=== PATIENT | female | born 1965 | race Caucasian/White ===

== ENCOUNTER 2016-11-22 07:01 | Day surgery (SDC) | payer MEDICAID ==
[2016-11-18 11:28] LABS: BASOPHIL % 0.9 % (0-2); PLATELET COUNT 316 x10^3mcL (130-400)
[2016-11-18 11:33] LABS: RED CELL DISTRIBUTION WIDTH 15.6 % (11.5-14.5)
[2016-11-18 11:54] LABS: ALBUMIN 3.5 g/dL (3.4-5.0); ALKALINE PHOSPHATASE 75 U/L (46-116); ALT/SGPT 21 U/L (14-59); AST/SGOT 17 U/L (15-37); BILIRUBIN TOTAL 0.3 mg/dL (0.20-1.00); CALCIUM 8.7 mg/dL (8.5-10.1); CARBON DIOXIDE 29.4 mmol/L (21-32); CHLORIDE SERUM 106 mmol/L (98-107); CREATININE SERUM 0.7 mg/dL (0.6-1.0); GFR1 > 60 mL/min; GLUCOSE SERUM 89 mg/dL (74-106); POTASSIUM SERUM 3.8 mmol/L (3.5-5.1); SODIUM SERUM 142 mmol/L (136-145); TOTAL PROTEIN, SERUM 7.3 g/dL (6.4-8.2)
[~2016-11-22] VITALS: Ht 157.5 cm; Wt 63.5 kg
[2016-11-22 07:38] VITALS: BP 122/79
[2016-11-22 18:22] VITALS: BP 115/69
== END 2016-11-22 18:20 | disposition home or self-care (01) ==
LOC: DS 07:01 → OR 13:00 → DS 13:00
PROVIDERS: Surgery
PROC: 07B60ZZ Excision of Left Axillary Lymphatic, Open Approach (ICD-10-PCS; 2016-11-22)
PROC: 0HBU0ZZ Excision of Left Breast, Open Approach (ICD-10-PCS; principal; 2016-11-22 13:00)
DX: C50.412 Malignant neoplasm of upper-outer quadrant of left female breast (principal); Z17.0 Estrogen receptor positive status [ER+]; Z68.27 Body mass index [BMI] 27.0-27.9, adult
CPT/HCPCS: 88344; 88361; J0690; J1170; J2001; J2175; J2250; J2405; J3010; J3490; Q9968

== ENCOUNTER 2019-04-18 07:28 | Inpatient (IN) | payer MEDICAID ==
[2019-04-15 12:01] LABS: BASOPHIL % 0.6 % (0-2); PLATELET COUNT 292 x10^3mcL (130-400); RED CELL DISTRIBUTION WIDTH 13.2 % (11.5-14.5)
[2019-04-15 12:22] LABS: CALCIUM 8.5 mg/dL (8.5-10.1); CARBON DIOXIDE 31.3 mmol/L (21-32); CHLORIDE SERUM 106 mmol/L (98-107); CREATININE SERUM 0.7 mg/dL (0.6-1.0); GFR1 > 60 mL/min; GLUCOSE SERUM 103 mg/dL (74-106); POTASSIUM SERUM 4.1 mmol/L (3.5-5.1); SODIUM SERUM 141 mmol/L (136-145)
[2019-04-15 12:26] LABS: ALKALINE PHOSPHATASE 71 U/L (46-116); ALT/SGPT 30 U/L (14-59); AST/SGOT 19 U/L (15-37); BILIRUBIN TOTAL 0.3 mg/dL (0.20-1.00); TOTAL PROTEIN, SERUM 6.5 g/dL (6.4-8.2)
[2019-04-15 12:27] LABS: ALBUMIN 2.9 g/dL (3.4-5.0)
[~2019-04-18] VITALS: Ht 157.5 cm; Wt 60.8 kg
[2019-04-18 07:37] VITALS: BP 106/64
[2019-04-18 09:13] VITALS: BP 106/64
--- NOTE | 2019-04-18 15:27 | NUR ---
RECIEVED BY BED FROM RECOVERY ROOM. PATIENT IS IN A DEEP SLEEP AND HAD RECIEVED DEMEROL PRIOR TO RETURN TO THE FLOOR. SEVERAL FAMILY MEMBERS AT BEDSIDE AND WERE ANSWERING QUESTIONS TO THE RN MINA FOR ADMISSION NOTED THE HARSHA AND BINDER IN PLACE AND THE FOUR TUCKER DRAINS. TWO TO EACH BREAST. PATIETN IS POST OPERATIVE BILTERAL MASECTOMY AND WITH AXILLARY INCISION WELL. THE PATEITN AHS SUTURES AND REJI ARE VISABLE. PATIENT HAS DIMINISHED BREATH SOUND AND PATEINT HAS BEEN PLACED ON 02 AT 2 LITERS VIA NASAL CANNULA. PATIENT HISTORY OF BREAST CANCER AND TWO BIOPSIED SITES ARE SENT TO PATHOLOGY INDICATED. PATIENT HAS HISTORY OF FIBROIDS, ANEMIA. HER H AND H TODAY IS AT 15/34, AND THE PATIENT HAD BEEN TYPED AND SCREENED FOR BLOOD. SHE HAS ONE GRAM OF ANCEF IN THE OPERATIVING ROOM AND HAS THE MRSA SWAB DONE IN OUTPATIENT AND CONSENTS AND CHECKLIST WERE COMPLETED PRIOR TO THE SURGERY. PATIENT HAS A LYMPHOSCINTIGRAM PER THE CONSENT. WILL START IV FLUIDS AND MONITOR FOR PAIN. VITALS ARE STABLE AND BP AT 120/60 AND TEMPERATURE IS NORMAL. SHE IS BREATHING SHALLOW AT 10 RESPIRATIONS PER THE RECOVERY NURSE SO 02 WAS APPLIED. OUTPUT IN OR WAS OVER 400 EBL AND THE TUCKER HAD NOT BEEN DRAINED SO FAR. TH EOUTPUT IS SEROUS SANGUINOUS AND SHE HAS ALL TUCKER PATIENT AND UNENCOMBERED FOR PROPER DRAINAGE.
--- NOTE | 2019-04-18 17:07 | NUR ---
PATIENT PERIODICALLY WAKES AND COMPLAINS OF PAIN BUT QUICKLY FALL BACK TO SLEEP. PATIET WAS GIVEN DILAUDID EARLIER AND SEEMS TO BE EFFECTIVE. PATIENT OFFER WATER AND WILL HAVE A DINNER TRAY TONIGHT. FAMILY AT BEDSIDE AND ATTENTIVE WITH CARE.
--- NOTE | 2019-04-18 17:53 | NUR ---
PATIENT FELL ASLEEP FOR NOW AND WILL EMPTY THE TUCKER'S INDICATED. PATIENT HAS SEROUS SANGUINOUS OUTPUT. DREESING REMAINS INTACT AND DRY. NO URINATION YET NOTED POST OPERATIVE.
--- NOTE | 2019-04-18 18:48 | NUR ---
PATIENT REQUESTED PAIN MEDICATION AND THEN WANTS TO URINATE AND OFFERED BEDPAN OR OOB TO THE [facility]. SHE OPTED FOR THE BEDPAN. SHE THEN IDNICATED HER STOMACH HURTS AND OFFERED ZOFRAN FOR HER ACIDY STOMACH. WILL MONITOR FOR EFFECTIVENESS.
--- NOTE | 2019-04-18 19:20 | NUR ---
REPORT RECEIVED FROM DAY SHIFT RN. PATIENT WAS SEEN RESTING COMFORTABLY IN BED WITH AT BEDSIDE. NO DISTRESS NOTED. BREATHING EVEN AND UNLABORED ON ROOM AIR. NO SOB NOTED. DENIES CHEST PAIN/PRESSURE. C/O 7/10 TOLERABLE PAIN AT SURGICAL SITE. PAIN MEDS GIVEN EARLIER BY DAY SHIFT RN. IV TO THE LH, 20G, PATENT AND INTACT. NO REDNESS OR SWELLING NOTED. INFUSING WELL. DRESSINGS TO RIGHT AXILLARY AND CHEST, CDI. ABD BINDER IN PLACE. 4 TUCKER DRAINS NOTED (2 BILATERALLY) W. MINIMAL SEROSANGUINEOUS OUTPUT NOTED. DENIES N/V. COMFORT AND SAFETY MEASURES IN PLACE. CALL LIGHT IS WITHIN REACH. BED IS LOCKED AND IN THE LOWEST POSITION. SIDE RAILS UP X2. CALL LIGHT IS WITHIN REACH. WILL CONTINUE TO MONITOR.
[2019-04-18 22:11] VITALS: BP 103/60
[2019-04-18 22:35] VITALS: BP 90/51
--- NOTE | 2019-04-18 22:55 | NUR ---
PATIENT VOIDED IN BED PAIN X1. URINE IS CLEAR LIGHT GREEN COLOR. PATIENT DENIES ANY MEDS THAT WOULD MAKE URINE GREEN. PATIENT STATES SHE ONLY TAKES OMEGA 3 AND ALOE VERA. WILL CONTINUE TO MONITOR.
[2019-04-18 23:09] VITALS: BP 99/54
--- NOTE | 2019-04-18 23:25 | NUR ---
VOIDED ON BED MACIAS. URINE IS STILL CLEAR LIGHT GREEN. PATIENT DENIES DSYURIA
--- NOTE | 2019-04-18 23:25 | NUR ---
VOIDED ON BED MACIAS. URINE IS STILL CLEAR LIGHT GREEN. PATIENT DENIES DSYURIA. WILL NOTIFY DR CHAMBERS.
--- NOTE | 2019-04-18 23:29 | NUR ---
READ OPERATIVE REPORT. METHYLENE BLUE WAS INJECTED INTO PATIENT CAUSING URINE TO BE GREEN.
--- NOTE | 2019-04-19 01:46 | NUR ---
JP ERICKSON ASSISTED PATIENT ONTO BED MACIAS. PATIENT ALSO C/O 9/10 SURGICAL PAIN. DESCRIBED PAIN THROBBING. PATIENT IS REQUESTING PRN NORCO. ADMINSITERED PRN NORCO PRESCRIBED. MED EDUCATION GIVEN. NO DISTRESS NOTED. ASSISTED PATIENT OFF BED MACIAS. URINE IS LESS GREEN. BREATHING EVEN AND UNLABORED ON ROOM AIR. IVF INFUSING WELL. ASSISTED PATIENT W/ REPOSITIONING FOR COMFORT. SAFETY MEASURES IN PLACE. CALL LIGHT IS WITHIN REACH. WILL CONTINUE TO MONITOR.
--- NOTE | 2019-04-19 05:34 | NUR ---
[facility] REPORTED LOW BP 85/47 (59). WILL CALL DR NOVA.
--- NOTE | 2019-04-19 06:03 | NUR ---
RESTED IN LONG INTERVALS THROUGHOUT THE NIGHT. NO ACUTE CHANGES NOTED. BREATHING EVEN AND UNLABORED ON ROOM AIR. NO SOB NOTED. NO DISTRESS NOTED. IVF INFUSING WELL TO LH. PATENT AND INTACT. NO REDNESS OR SWELLING NOTED. C/O PAIN X1. MEDICATED W/ PRN NORCO W/ GOOD RELIEF. DENIES CHEST PAIN/PRESSURE. CHEST DRESSING IN PLACE W/ ABD BINDER. 4 TUCKER DRAINS: RT#1: 10ML OF SEROSANGUINEOUS OUTPUT, RT#2: 20ML OF BLOODY OUTPUT, LT#1: 20ML OF BLOODY OUTPUT, AND LT#2 10ML OF BLOODY OUTPUT. TOTAL 60ML OUT FROM TUKCER DRAIN. VOIDED X5. PASSING GAS. NO BM. LOW BP. AWAITING CALL BACK FROM DR NOVA. PATIENT WANTS TO AMBULATE. EDUCATED PATIENT ON FALL RISK SINCE BP IS LOW. VERBALIZED UNDERSTANDING. ALL NEEDS AND CONCERNS ADDRESSED. SAFETY MEASURES IN PLACE. CALL LIGHT IS WITHIN REACH. WILL ENDORSE CARE TO ONCOMING RN.
[2019-04-19 06:07] VITALS: BP 85/47
[2019-04-19 06:32] LABS: BASOPHIL % 0.2 % (0-2); PLATELET COUNT 240 x10^3mcL (130-400); RED CELL DISTRIBUTION WIDTH 13.7 % (11.5-14.5)
[2019-04-19 06:33] VITALS: BP 85/49
--- NOTE | 2019-04-19 06:33 | NUR ---
REASSESSED BP. STILL LOW. BP 85/49 (58), HR 76. STILL AWAITING CALL BACK FROM DR NOVA. PATIENT SHOWS NO S/S OF DISTRESS. LAYING IN BED. AT BEDSIDE. SAFETY MEASURES IN PLACE. CALL LIGHT IS WITHIN REACH. WILL CONTINUE TO MONITOR AND ENDORSE CARE TO DAY SHIFT RN.
--- NOTE | 2019-04-19 06:48 | NUR ---
PAGED DR NOVA AGAIN FOR LOW BP. AWAITING CALL BACK.
--- NOTE | 2019-04-19 06:52 | NUR ---
DR NOVA CALLED BACK. NEW ORDERS FOR 500ML NS BOLUS AND TO CONSULT DR JONES VIA TRBO. WILL INPUT AND CARRY OUT ORDERS.
--- NOTE | 2019-04-19 07:10 | NUR ---
DR NOVA CALLED BACK ON UPDATE W/ THE PATIENT. DR NOVA IS AWARE BOLUS IS STILL INFUSING, TUCKER DRAIN OUT, AND PATIENT'S STATUS THROUGHOUT THE NIGHT. AWARE OF AM H/H LABS. NO NEW ORDERS AT THIS TIME. WILL ENDORSE CARE TO DAY SHIFT RN.
[2019-04-19 07:30] VITALS: BP 114/80
--- NOTE | 2019-04-19 07:30 | NUR ---
RECEIVED PT FROM COTTON TIER RN. A/OX4. MED SURG. DENIES CHEST PAIN/PRESSURE. RESPIRATIONS EQUAL AND UNLABORED ON RA. DENIES SOB. ABDOMINAL PAD TO UPPER CHEST. DRESSING CDI. NOTED TUCKER DRAINAGE X4 WITH SANGINEOUS DRAINAGE TO ALL 4 DRAINS. PT PASSING GAS, PT DENIES ANY BM AT THIS TIME. PT DENIES ANY ABDOMINAL PAIN. BOLUS COMPLETE TO LH. NO REDNESS OR SWELLING NOTED. BLOOD PRESSURE RECHECKED IN RIGHT LEG WAS 114/80. PT C/O PAIN TO OPERATIVE SITE 810 PRESSURE. WILL MEDICATE PER EMAR. DENIES ANY N/V. AT BEDSIDE. WILL CONTINUE TO MONITOR. CALL LIGHT IN REACH. BED IN LOWEST POSITION.
[2019-04-19 08:34] VITALS: BP 114/50
--- NOTE | 2019-04-19 09:22 | NUR ---
PT SITTING UP IN BED. NO ACUTE RESP DISTRESS NOTED ON RA. PT STATES PAIN HAS IMPROVED 5/10 BUT STILL HAVE PRESSURE WHEN TAKING A DEEP BREATH. PT STILL REFUSING IV PAIN MEDICATION. PT STATES "I DON'T LIKE THOSE MEDICATIONS. I WOULD JUST RATHER HAVE THE PILL" WILL CONTINUE TO MONITOR. CALL LIGHT IN REACH. BED IN LOWEST POSITION.
--- NOTE | 2019-04-19 10:10 | NUR ---
PAGED DR. NOVA REGARDING MRSA OF NARES POSITIVE RESULT. AWAITING CALL BACK.
[2019-04-19 11:20] VITALS: BP 104/47; BP 114/47
--- NOTE | 2019-04-19 12:08 | NUR ---
DR. CHOUDHURY AT BEDSIDE. EXPLAINING TO PT PLAN FOR DISCHARGE TOMORROW. EXPLAINING TO PT AND DAUGHTER WILL TREAT MRSA OF NARES, WILL PT IN PHYSICAL EVALUATION TODAY AND WILL CONTINUE PAIN MANAGEMENT. ALL QUESTIONS AND CONCERNS ADDRESSED.
--- NOTE | 2019-04-19 13:42 | NUR ---
PT SITTING UP IN BED. NO ACUTE RESP DISTRESS NOTED ON RA. PT STATES PAIN IS ABOUT 6/10 TO OPERATIVE SITE PRESSURE. PT STATES "I WILL WAIT FOR NORCO WHEN ITS AVAILABLE" IV PATENT AND INFUSING TO LH. NO REDNESS OR SWELLING NOTED. HIBICLENS TOPICAL GIVEN. WILL CONTINUE TO MONITOR. CALL LIGHT IN REACH. BED IN LOWEST POSITION.
--- NOTE | 2019-04-19 13:44 | NUR ---
SPOKE WITH DR. NOVA. PT IS OKAY FOR DISCHARGE.
[2019-04-19 14:13] VITALS: BP 114/47
--- NOTE | 2019-04-19 16:04 | NUR ---
SPOKE WITH DR. NOVA REGARDING PT DISCHARGE. PER DR. NOVA WANTS PT TO FOLLOW UP IN OFFICE ON 04/23/19, PER DR. NOVA PLEASE EDUCATE PT ON TUCKER DRAIN MANAGEMENT. SPOKE WITH CREATIVE INTERN DEREK INFORMED HER TO SCHEDULE FOLLOW UP APPOINTMENT ON 04/23/19
--- NOTE | 2019-04-19 17:54 | NUR ---
PT SITTING UP IN BED. DAUGHTER AND AT BEDSIDE. PT GIVEN DISCHARGE EDUCATION. PT INFORMED OF FOLLOW UP APPOINTMENT WITH DR. NOVA SCHEDULED ON 04/22/19 AT 3:15 PM. PT VERBALIZED UNDERSTANDING. PT, DAUGHTER AND EDUCATED ON HOW TO EMPTY TUCKER DRAINGS. DAUGHTER STATES "I WILL BE THE ONE TO DO THEM." DAUGHTER RETURNED BACK DEMONSTRATION. EMPTIED 8 ML OF SANGINEOUS DRAINAGE FROM RIGHT TUCKER DRAIN, EMPTIED 30 ML OF SANGINEOUS DRAINAGE FROM 2ND RIGHT TUCKER DRAIN, EMPTIED 6 ML OF SANGINEOUS DRAINAGE FROM LEFT TUCKER DRAIN, EMPTIED 14 ML OF SANGINEOUS DRAINAGE FROM LEFT 2ND TUCKER DRAIN. DRESSING TO CHEST CDI. ABDOMINAL BINDER IN PLACE. EDUCATED PT AND DAUGHTER ON IMPORTANCE OF NO BLOOD PRESSURE OR BLOOD DRAWS IN BOTH UPPER EXTREMITIES AFTER DOUBLE MASTECTOMY. PT VERBALIZED UNDERSTANDING. PT ENCOURAGED TO MONITOR FOR SIGNS AND SYMPTOMS OF HIGH FEVER, EXCESSIVE DRAINAGE FROM INCISION SITES OR TUCKER DRAIN, ANY FOUL SMELLING ODOR OR PUSS. PT ENCOURAGED TO CONTACT DR. NOVA OFFICE OR COME INTO ER IF ANY WORSENING SYMPTOMS. PT PROVIDED DRAINAGE COLLECTION CUP TO EMPTY DRAINS. PT GIVEN PRESCRIPTIONS FOR NORCO, HIBICLENS AND BACTROBAN. PT INFORMED LAST DOSE OF NORCO WAS GIVEN AT 1430 AND NEXT DOSE CAN BE TAKEN AFTER 2030. PT VERBALIZED UNDERSTANDING. IV TO LH REMOVED CATHETER INTACT. NO REDNESS OR SWELLING NOTED. ALL QUESTIONS AND CONCERNS ADDRESSED. NO PROBLEMS ENCOUNTERED. PT TAKEN OFF FLOOR VIA WHEELCHAIR BY JP.
[2019-04-22 11:34] VITALS: Ht 157.5 cm; Wt 60.8 kg
--- NOTE | 2019-04-22 16:58 | NUR ---
Radha bass for 04/19/19 at 1310 [facility] card and list to low cost medical clinics given to patient by Marysol.
== END 2019-04-19 18:13 | disposition home or self-care (01) | DRG 363 ==
LOC: MU 07:28 → EDSTATUS 09:00 → DS 09:00 → NM 09:00 → MU 15:21
PROVIDERS: ADMIT Surgery
PROC: 07B50ZX Excision of Right Axillary Lymphatic, Open Approach, Diagnostic (ICD-10-PCS; 2019-04-18)
PROC: 0HBV0ZZ Excision of Bilateral Breast, Open Approach (ICD-10-PCS; principal; 2019-04-18 11:30)
DX: C50.912 Malignant neoplasm of unspecified site of left female breast (principal); C50.911 Malignant neoplasm of unspecified site of right female breast; Z92.3 Personal history of irradiation; Z79.810 Long term (current) use of selective estrogen receptor modulators (SERMs); Z68.24 Body mass index [BMI] 24.0-24.9, adult; Z17.0 Estrogen receptor positive status [ER+]
CPT/HCPCS: 88329; 88344; 88361; G0378; J0690; J1170; J2175; J2250; J2270; J2405; J2704; J3010; J3480; J3490; J7040; J7120; Q9968

== ENCOUNTER 2019-06-07 19:35 | Inpatient (IN) | payer MEDICAID ==
[~2019-06-07] VITALS: Ht 157.5 cm; Wt 59.9 kg
--- NOTE | 2019-06-07 20:16 | NUR ---
PT PRESENTS TO ED WITH C/O 04/25 L BREAST PAIN/REDNESS/SWELLING. PT STATES THAT SHE HAD A DOUBLE MASTECTOMY ON 04/18/19 FOR BREAST CANCER. PT STATES SHE SAW HER SURGEON YESTERDAY HOWEVER STATES HE DID NOT SUSPECT ANY SOURCE OF INFECTION AT THE TIME. PT TODAY HAS REDNESS AND INFLAMATION TO L BREAST. PT ALSO HAS INTACT SURGICAL DRAIN TO L BREAST WITH CLEAR DRAINAGE. PT SKIN IS WARM, DRY AND INTACT. SURGICAL INCISIONS APPEAR TO BE HEALING WELL AND ARE CLEAN DRY AND INTACT. PT AXO X4. PT SPEAKING IN CLEAR AND FULL SENTENCES. PT RESP E/U. PT CONNECTED TO FULL CM AND PULSE OX MONITORS. FAMILY AT BEDSIDE. NAD AT THIS TIME
--- NOTE | 2019-06-07 20:42 | NUR ---
PT REQUESTING PAIN MEDS AT THIS TIME FOR 10/10 L BREAST PAIN. MD BONILLA AWARE. AWAITING NEW ORDERS AWARE OF PT CURRENT BP. STATES TO REEVALUATE AFTER 1L BOLUS OF NS
[2019-06-07 20:45] LABS: BASOPHIL % 0.2 % (0-2); PLATELET COUNT 279 x10^3mcL (130-400); RED CELL DISTRIBUTION WIDTH 12.9 % (11.5-14.5)
--- NOTE | 2019-06-07 20:59 | NUR ---
MD BONILLA AWARE OF PT TEST. STATES TO HOLD MOTRIN AT THIS TIME. HCG LAB TEST ORDERED. AWAITING RESULTS. AWAITING NEW MED ORDERS AT THIS TIME
[2019-06-07 21:05] LABS: CALCIUM 8.6 mg/dL (8.5-10.1); CARBON DIOXIDE 27.8 mmol/L (21-32); CHLORIDE SERUM 100 mmol/L (98-107); CREATININE SERUM 0.9 mg/dL (0.6-1.0); GFR1 > 60 mL/min; GLUCOSE SERUM 145 mg/dL (74-106); POTASSIUM SERUM 3.9 mmol/L (3.5-5.1); SODIUM SERUM 136 mmol/L (136-145)
[2019-06-07 21:08] LABS: ALBUMIN 3.3 g/dL (3.4-5.0); ALKALINE PHOSPHATASE 89 U/L (46-116); ALT/SGPT 25 U/L (14-59); AST/SGOT 11 U/L (15-37); BILIRUBIN TOTAL 0.27 mg/dL (0.20-1.00); TOTAL PROTEIN, SERUM 6.9 g/dL (6.4-8.2)
[2019-06-07 21:40] LABS: UA SPECIFIC GRAVITY <=1.005 (1.005-1.035); microscopic required? YES; urine erythrocyte 2+ (NEGATIVE)
--- NOTE | 2019-06-07 22:31 | NUR ---
REPORT CALLED TO PACO SADLER. ALL QUESTIONS AND CONCERNS ADDRESSED AT THIS TIME
[2019-06-07 23:22] VITALS: BP 92/54
--- NOTE | 2019-06-07 23:33 | NUR ---
RECEIVED PT FROM ER, PT ADMIT FOR LEFT BREAST CELLULITIS, PT IS A/O X4, VERBAL RESPONSIVE, LUNG SOUND CLEAR BILATERAL, NO COUGH, NO SOB, PT HAS DOUBLE MASTECTOMY. AT LEFT BREAST, THERE IS RED DISCOLORATION SURROUND THE CHEST, TUCKER IN PLACE WITH YELLOW DRAINAGE NOTED, COLLECT THE SAMPLE SENT TO LAB. PT C/O MILD PAIN 2/10 AT LEFT CHEST AT THIS MOMETN, BOWEL SOUND PRESENT ALL 4 QUADRANTS, NO DISTENTION, NO TENDER. PEDAL PULSE PRESENT BOTH FEET, NO EDEMA, IV AT LEFT AC, NO LEAKING, NO INFILTRAITON. ALL ADLS ASSIST, ALL NEED MET, CALL LIGHT IN REACH, WILL CONTINUE TO MONITOR.
--- NOTE | 2019-06-08 00:32 | NUR ---
BOLUS NS INFUSING FOR LOW BP 90/54, IV ATB ZOSYN ALSO HANGED INDICATED PT ASLEEP NO S/SX OF PAIN, VISUAL CHECKED AT INTERVALS.
--- NOTE | 2019-06-08 00:47 | NUR ---
SEEN BY DR SANTA INFEC FOR CONSULT, WITH ORDER TO PUT PT ON TELE MONITOR, PLACED ON TELE 27, ST HR 101, NO CP OR PRESSURE, CONT TO MONITOR.
[2019-06-08 02:00] VITALS: BP 95/41
--- NOTE | 2019-06-08 02:00 | NUR ---
RECHECKED BP POST BOLUS OF NS 1 LITER GIVEN, TAKEN AT RT LOWER LEG 95/41, MAP 54, PT IS ASYMPTOMATIC, ST/SR IN THE MONITOR, WILL CONT TO MONITOR.
[2019-06-08 05:56] VITALS: BP 107/50
--- NOTE | 2019-06-08 06:55 | NUR ---
PT SLEEPING INTERMITTENT DURING THE SHIFT, DENIES PAIN, EMPTIED DRAINED @ LT BREAST, HAS 30CC MILKY WHITE DRAINAGE, AFEBRILE, CONT ON ATB ORDERED, NO ADV REACTION, AMBULATES TO THE BATHROOM, STEADY BALANCE, ST IN THE MONITOR. WILL ENDORSE TO INCOMING SHIFT FOR F/U CARE.
[2019-06-08 07:02] LABS: BASOPHIL % 0.3 % (0-2); PLATELET COUNT 222 x10^3mcL (130-400); RED CELL DISTRIBUTION WIDTH 13.3 % (11.5-14.5)
--- NOTE | 2019-06-08 07:02 | NUR ---
PT'S BP 107/50, IVF NS INFUSING @ 100 CC/HR
[2019-06-08 07:52] LABS: CARBON DIOXIDE 22.3 mmol/L (21-32); CHLORIDE SERUM 109 mmol/L (98-107); CREATININE SERUM 0.7 mg/dL (0.6-1.0); GFR1 > 60 mL/min; GLUCOSE SERUM 96 mg/dL (74-106); PHOSPHOROUS 2.1 mg/dL (2.5-4.9); POTASSIUM SERUM 3.2 mmol/L (3.5-5.1); SODIUM SERUM 141 mmol/L (136-145)
--- NOTE | 2019-06-08 08:30 | NUR ---
AAO TIMES 4. TELE # 27 SR. LUNGS CTA. NO SOB. O2 SAT ON RA 97%. BS'S ACTIVE TIMES 4. LEO MAHER. IV SITE LAC PATENT, CDI. COOPERAIVE. SON AT BEDSIDE, SUPPORTIVE. NO C/O PAIN. LEFT CHEST TUCKER DRAINING SEROUS FLUID.
[2019-06-08 08:35] VITALS: BP 103/44
--- NOTE | 2019-06-08 09:46 | NUR ---
SENT PAGE GATE TO DR HAMILTON TO NOTIFY HIM OF PATIENT'S K OF 3.2, AND PHOS OF 2.1.
[2019-06-08 09:54] VITALS: Ht 157.5 cm; Wt 59.9 kg
[2019-06-08 12:12] VITALS: BP 95/54
[2019-06-08 16:42] VITALS: BP 106/49
--- NOTE | 2019-06-08 18:23 | NUR ---
AAO TIMES 4. TELE # 27 SR. NO C/O PAIN. NO SOB. TUCKER DRAINED A TOTAL OF 20 ML OF SEROUS CLOUDY FLUID FROM HER LEFT CHEST AREA. IV SITE CDI. DAUGHTER AT BEDSIDE, SUPPORTIVE. NO SOB. BRP SELF, TOLERATES WELL.
--- NOTE | 2019-06-08 19:51 | NUR ---
PT IN BED TALKING IN THE PHONE, NOT IN ANY PAIN, NO DISTRESS LUNGS CTA, IVF NS INFUSING @ 100CC/HR IV ACCESS @ LAC PATENT NON INFIL, TUCKER DRAINAGE TO LT BREAST PATENT WITH THICK YELLOWISH DRAINAGE, BILAT MASTECTOMY, REDNESS TO LT BREAST STILL VISIBLE PAIN TO TOUCH, PT ABLE TO REPOSITIONED SELF, SHIFT ASSESSMENT DONE, ATTENDED NEEDS, CONT TO MONITOR.
[2019-06-08 20:40] VITALS: BP 107/48
[2019-06-08 21:19] LABS: AMPHETAMINE QUAL UR NONE DETECTED (See below)
--- NOTE | 2019-06-08 22:17 | NUR ---
SEEN BY DR NOVA FOR CONSULT AWAITING FOR ORDERS.
--- NOTE | 2019-06-08 23:31 | NUR ---
PT C/O HEADACHE 5/10 PER ASSESSMENT NOT IN ANY DISTRESS, TYLENOL 650 MG PO GIVEN PER PRN ORDER FOR PAIN, CONT TO MONITOR.
[2019-06-09 05:19] VITALS: BP 98/60
--- NOTE | 2019-06-09 06:15 | NUR ---
PT SLEPT WELL DURING THE SHIFT DENIES PAIN, PUTTING OUT 20CC SEROUS DRAINAGE FROM TUCKER @ LT BREAST, IVF INFUSING WELL, CONT ON ATB IV ORDERED NO ADV REACTION, NEEDS MET, WILL ENDORSE TO INCOMING SHIFT FOR F/U CARE.
[2019-06-09 07:54] LABS: BASOPHIL % 0.8 % (0-2); PLATELET COUNT 248 x10^3mcL (130-400); RED CELL DISTRIBUTION WIDTH 13.3 % (11.5-14.5)
[2019-06-09 08:01] LABS: CALCIUM 7.5 mg/dL (8.5-10.1); CARBON DIOXIDE 23.1 mmol/L (21-32); CHLORIDE SERUM 110 mmol/L (98-107); CREATININE SERUM 0.7 mg/dL (0.6-1.0); GFR1 > 60 mL/min; GLUCOSE SERUM 94 mg/dL (74-106); PHOSPHOROUS 2.5 mg/dL (2.5-4.9); POTASSIUM SERUM 3.5 mmol/L (3.5-5.1); SODIUM SERUM 142 mmol/L (136-145)
[2019-06-09 08:27] VITALS: BP 94/56
--- NOTE | 2019-06-09 09:20 | NUR ---
RECIEVED REPORT FROM [facility] NURSE. PATIENT CURRENTLY ON PRECAUTIONARY MRSA ISOLATION FOR MRSA IN THE NARES. PHYSICAL ASSESSMENT REVEALED DOUBLE MASTECTOMY WITH TUCKER DRAINING FROM LEFT BREAST. IV CURRENTLY INFUSING NS AT 100/HOUR TO LEFT AC. SPOUSE AT BEDSIDE WITH PATIENT. PATIENT REPORTS PAIN ON ON LEFT SIDE OF CHEST. WILL MEDICATE PER EMAR.
--- NOTE | 2019-06-09 14:39 | NUR ---
SPOKE WITH PHARMACIST REGARDING PATIENT'S VANCO TROUGH. PHARMACIST RECOMFIRMED TO GO AHEAD AND ADMINISTER THE SCHEDULED VANCMYCIN TO PATIENT. PATIENT CURRENTLY AWAKE AND RESTING IN BED. NO REPORT OF PAIN AT THIS TIME.
[2019-06-09 17:42] VITALS: BP 102/56
--- NOTE | 2019-06-09 19:06 | NUR ---
PATIENT CURRENTLY RESTING IN BED. NO REPORT OF PAIN AT THIS TIME. LEFT BREAST TUCKER DRAIN AT 20 ML. AT BEDSIDE WILL ENDORSE CARE TO NIGHT NURSE.
--- NOTE | 2019-06-09 19:30 | NUR ---
REC'D PT FROM DAY NURSE. AT BEDSIDE. PT RESTING IN BED. AAOX4, SPEECH CLEAR, FOLLOWS COMMANDS. MED SURG, NO TELE. DENIES CP, DIZZINESS, OR PALPITATIONS. DENIES RESP DISTRESS OR SOB. BREATHING EVEN/UNLABORED ON RA. NO EDEMA NOTED. ABD SOFT/ROUND. DENIES AND PAIN OR N/V. REPORTS TENDERNESS UPON PALPATION. VOIDING FREELY. AMBULATORY. SCARS TO NEREIDA BREASTS S/P NEREIDA MASTECTOMIES. L BREAST SLIGHTY ERYTHEMIC AND EDEMATOUS. TENDER TO TOUCH BUT DENIES PAIN AT REST. L LATERAL BREAST TUCKER DRAINING SEROUS FLUID WITH SEDIMENTS. BANDAID CHANGED- NOTED SOME DRY BROWN DRAINAGE TO TUCKER SITE. SUTURES NOTED. WEEKLY PICTURE OBTAINED. CLEANSED SITE WITH NS, DRIED, AND APPLIED NEW BANDAID. VOIDING FREELY. AMBULATORY. IV TO RFA PATENT AND INFUSING, SITE WNL. CALL LIGHT WITHIN REACH, BED AT LOWEST POSITION. WILL CONTINUE TO MONITOR.
[2019-06-09 20:39] VITALS: BP 102/62
--- NOTE | 2019-06-09 21:40 | NUR ---
PT C/O /10 L BREAST PAIN EXACERBATED BY MOVEMENT OR TOUCH. NORCO GIVEN PER ORDER. PT INFORMED FOR NPO AFTER MN FOR POSS PROCEDURE AND PLAN FOR L BREAST US IN AM. PT VERBALIZED UNDERSTANDING. WILL CONTINUE TO MONITOR.
--- NOTE | 2019-06-10 01:16 | NUR ---
PT RESTING IN BED WITH EYES CLOSED. NO SIGNS OF DISTRESS OR PAIN NOTED. BREATHING EVEN/UNLABORED ON RA. CALL LIGHT WITHIN REACH, BED AT LOWEST POSITION. WILL CONTINUE TO MONITOR.
--- NOTE | 2019-06-10 05:37 | NUR ---
PT RESTING IN BED WITH EYES CLOSED. AWAKENS WITH VERBAL STIMULI. BREATHING EVEN/UNLABORED ON RA. L LATERAL BREAST TUCKER DRAIN IN PLCE. 20 ML CLOUDY, SEROUS FLUID OUT WITH SEDIMENTS. PT DENIES PAIN AT THIS TIME. NO SIGNIFICANT CHANGES DURING SHIFT. PLAN FOR REPEAT L BREAST US THIS AM. PT NPO FOR POSS PROCEDURE. CALL LIGHT WITHIN REACH, BED AT LOWEST POSITION. WILL ENDORSE TO DAY NURSE.
[2019-06-10 05:45] VITALS: BP 96/58
[2019-06-10 06:21] LABS: BASOPHIL % 0.7 % (0-2); PLATELET COUNT 270 x10^3mcL (130-400); RED CELL DISTRIBUTION WIDTH 13.3 % (11.5-14.5)
[2019-06-10 06:46] LABS: CALCIUM 8.1 mg/dL (8.5-10.1); CHLORIDE SERUM 107 mmol/L (98-107); CREATININE SERUM 0.8 mg/dL (0.6-1.0); GFR1 > 60 mL/min; GLUCOSE SERUM 93 mg/dL (74-106); POTASSIUM SERUM 4.6 mmol/L (3.5-5.1); SODIUM SERUM 141 mmol/L (136-145)
--- NOTE | 2019-06-10 07:30 | NUR ---
RECEIVED PATIENT IN BED, AWAKE ALERT AND ORIENTED. DENIES ANY PAIN AT THIS TIME. IVF INFUSING WELL TO RT F/A. RESP EVEN AND UNLABORED, LUNGS CLEAR ON ROOM AIR. LEFT BREAST PINK AND SWELLING NOTED. TUCKER DRAIN NOTED WITH SCANT AMOUNT OF SEROUS DRAINAGE NOTED. BILAT BREAT SCARS NOTED. PATIENT IS AMBULATORY. NPO OF US AT THIS TIME. WILL CONTINUE TO MONITOR.
[2019-06-10 07:45] VITALS: BP 156/54
--- NOTE | 2019-06-10 08:22 | NUR ---
PATIENT C/O LEFT BREAST PAIN 7/10 ON THE PAIN SCALE. MEDICATED WITH NORCO PO ORDERED. WILL MONITOR FOR EFFECT.
--- NOTE | 2019-06-10 09:20 | NUR ---
PATIENT IN BED, LEFT BREAST PAIN 2/10 ON THE PAIN SCALE AT THIS TIME.
--- NOTE | 2019-06-10 13:42 | NUR ---
Discount pharmacy card and list to low cost medical clinics given to patient by Darek Mcclellan.
--- NOTE | 2019-06-10 15:47 | NUR ---
PATIENT APPEARS STABLE. REMAINS IN BED. TUCKER DRAIN DC'D BY MELISSA PEREZ. 20 ML WAS IN COLLECTION BULB. DRY DRESSING APPLIED TO AREA BY MELISSA PEREZ. PATIENT CONTINUES TO DENY ANY PAIN AT THIS TIME.
--- NOTE | 2019-06-10 16:03 | NUR ---
RECEIVED + MRSA RESULTS IN PATIENT'S LEFT BREAST WOUND FROM LAB. MELISSA PEREZ NOTIFIED AT THIS TIME.
--- NOTE | 2019-06-10 16:37 | NUR ---
I HAVE REVIEWED THE DATA COLLECTION BY COLLEGE PHYSICS INSTRUCTOR (NAME): ENTERED ON (DATE/TIME): I CONCUR WITH THE DATA AND ANY EXCEPTIONS OR COMMENTS ARE LISTED BELOW: PATIENT'S PLAN OF CARE WAS DISCUSSED AND REVIEWED WITH COLLEGE PHYSICS INSTRUCTOR: JAYNA JENKINS
[2019-06-10 16:39] VITALS: BP 94/49
--- NOTE | 2019-06-10 18:21 | NUR ---
PATIENT SITTING UP IN BED WITH DAUGHTER AT BEDSIDE. C/O LEFT BREAST PAIN 8/10 ON THE PAIN SCALE AND A H/A. MEDICATED WITH NORCO PO ORDERED. NO CHANGE IN CONDITIION NOTED. IVF INFUSING WELL, SITE PATENT.
--- NOTE | 2019-06-10 19:05 | NUR ---
RECEIVED PT FROM PREVIOUS SHIFT NURSE. PT AOX4. DENIES CUEVAS/DIZZINESS AT THIS TIME. MED SURG PT, DENIES CP/PRESSURE. DENIES SOB/DIFFICULTY BREATHING, ON RA. DSG TO L. BREAST WHERE TUCKER DRAIN WAS DC'D. L. BREAST ERYTHEMA/EDEMA NOTED. B/L BREAST SCARS, SHU. IV TO RFA, INTACT AND PATENT. BED IN LOWEST POSITION. CALL LIGHT WITHIN REACH. WILL CONTINUE TO MONITOR.
[2019-06-10 20:35] VITALS: BP 146/68
--- NOTE | 2019-06-11 02:30 | NUR ---
PT RESTING IN BED. RR EVEN AND UNLABORED IN NO ACUTE DISTRESS. CALL LIGHT WITHIN REACH. BED IN LOWEST POSITION. WILL CONTINUE TO MONITOR.
[2019-06-11 05:36] VITALS: BP 124/64
--- NOTE | 2019-06-11 07:15 | NUR ---
PT LYING IN BED, A/A. BREATHING EQUAL/UNLABORED ON RA. NO ACUTE DISTRESS. PT STATES SHE HAS A CUEVAS. IVF RUNNING AT 100ML/HR. NO REDNESS/ SWELLING TO IV SITE. BED IN LOW POSITION, CALL LIGHT IN REACH, SAFETY PRECAUTIONS IN PLACE. WILL CONTINUE TO MONITOR
[2019-06-11 07:54] LABS: BASOPHIL % 0.7 % (0-2); PLATELET COUNT 292 x10^3mcL (130-400); RED CELL DISTRIBUTION WIDTH 12.9 % (11.5-14.5)
[2019-06-11 08:11] VITALS: BP 124/62
[2019-06-11 08:11] LABS: CALCIUM 8.3 mg/dL (8.5-10.1); CARBON DIOXIDE 25.6 mmol/L (21-32); CHLORIDE SERUM 105 mmol/L (98-107); CREATININE SERUM 0.7 mg/dL (0.6-1.0); GFR1 > 60 mL/min; GLUCOSE SERUM 97 mg/dL (74-106); POTASSIUM SERUM 3.8 mmol/L (3.5-5.1); SODIUM SERUM 141 mmol/L (136-145)
[2019-06-11] MEDS ORDERED: BACDS PO (11:20)
[2019-06-11] MEDS ORDERED: IBUPROFEN400 MG PO (11:21)
[2019-06-11] MEDS ORDERED: BACO TOP (11:21)
[2019-06-11 11:33] VITALS: BP 124/62
--- NOTE | 2019-06-11 12:27 | NUR ---
PT DC'D HOME. PT A/A, ORIENTED X 4, AMBULATORY, NO ACUTE PAIN/ DISTRESS. PT DISCHARGE INSTRUCTIONS, EDUCATION, F/U APPT, AND NEW RX DISCUSSED, PT VERBALIZED UNDERSTANDING. IV REMOVED WITH CATHETER INTACT. PT BROUGHT DOWN TO LOBBY ACCOMPANIED BY TIERCE FILLER, ALL BELONGINGS WITH PT.
== END 2019-06-11 12:27 | disposition home or self-care (01) | DRG 720 ==
LOC: ED 19:35 → DU 21:50 → MU 21:50 → DU 06-08 00:35 → MU 06-09 11:39
PROVIDERS: Emergency Medicine; ADMIT General Practice
DX: A41.9 Sepsis, unspecified organism (principal); C77.3 Secondary and unspecified malignant neoplasm of axilla and upper limb lymph nodes; C50.911 Malignant neoplasm of unspecified site of right female breast; E44.1 Mild protein-calorie malnutrition; N39.0 Urinary tract infection, site not specified; E87.6 Hypokalemia; Z17.0 Estrogen receptor positive status [ER+]; E83.51 Hypocalcemia; E83.39 Other disorders of phosphorus metabolism; Z68.24 Body mass index [BMI] 24.0-24.9, adult
CPT/HCPCS: 76641; G0378; J0696; J2405; J2543; J3370; J7030; Q0092

== ENCOUNTER 2019-07-01 21:10 | Inpatient (IN) | payer MEDICAID ==
[~2019-07-01] VITALS: Ht 157.5 cm; Wt 58.1 kg
[~2019-07-01 21:10] MED LIST: BACDS PO; BACO TOP; IBUPROFEN400 MG PO
[2019-07-01 21:48] VITALS: Ht 157.5 cm; Wt 58.1 kg
[2019-07-01 22:22] LABS: BASOPHIL % 1.1 % (0-2); PLATELET COUNT 444 x10^3mcL (130-400); RED CELL DISTRIBUTION WIDTH 12.9 % (11.5-14.5)
[2019-07-01 22:36] LABS: CARBON DIOXIDE 29.7 mmol/L (21-32); CHLORIDE SERUM 105 mmol/L (98-107); CREATININE SERUM 0.8 mg/dL (0.6-1.0); GFR1 > 60 mL/min; GLUCOSE SERUM 115 mg/dL (74-106); POTASSIUM SERUM 3.4 mmol/L (3.5-5.1); SODIUM SERUM 142 mmol/L (136-145)
[2019-07-01 22:41] LABS: ALKALINE PHOSPHATASE 96 U/L (46-116); ALT/SGPT 20 U/L (14-59); AST/SGOT 16 U/L (15-37); BILIRUBIN TOTAL 0.2 mg/dL (0.20-1.00); TOTAL PROTEIN, SERUM 7.6 g/dL (6.4-8.2)
[2019-07-01 22:43] LABS: ALBUMIN 3.3 g/dL (3.4-5.0)
--- NOTE | 2019-07-01 23:28 | NUR ---
PT PRESENTS TO ER TODAY WITH C/O OF L BREAST PAIN THAT STARTED AFTER A DOUBLE MASTECTOMY IN APRIL. PT STATES THAT SHE WAS SEEN HERE [facility] 2 WEEKS AGO DUE TO AN INFECTION OF MRSA TO HER L BREAST. PT HAS BEEN PRESCRIBED A COUPLE OF ANTIBIOTICS FOR HER INFECTION. PT IS CURRENTLY TAKING LINEZOLID. PT STATES SHE WAS SEEN BY HERE CJ YESTERDAY AND TOLD TO COME TO THE ER FOR FURTHER EVALUATION OF HER L BREAST INFECTION. PT REPORTS 7/10 PAIN TO HER L BREAST. PT DENIES ANY FEVERS AT HOME. PT IS A/0 X4. RESP ARE E/U. NO ACUTE DISTRESS NOTED.
--- NOTE | 2019-07-02 01:15 | NUR ---
REPORT GIVEN TO ANTHONY SADLER TO ASSUME CARE OF PT.
[2019-07-02 01:57] LABS: PHOSPHOROUS 3.3 mg/dL (2.5-4.9)
[2019-07-02 02:03] VITALS: BP 115/67
--- NOTE | 2019-07-02 02:17 | NUR ---
RECEIVED PT FROM ER, PT ADMIT FOR LEFT BREAST ABSCESS, CELLULITIS. PT IS A/OX 4, VERBAL RESPONSIVE. LUNG SOUND CLEAR BILATERAL, NO COUGH, NO SOB. PT DENY ANY CHEST PAIN OR DISCOMFORT, LEFT CHEST S/P MASTECTOMY ERYTHEMA. NO DRAINAGE. BOWEL SOUND PRESENT ALL 4 QUADRANTS, NO DISTENTION, NO TENDER. PEDAL PULSE PRESENT BOTH FEET, NO EDEMA, IV AT LEFT AC, NO LEAKING, NO INFILTRATION. ALL ADLS ASSIST, ALL NEED MET, CALL LIGHT IN REACH, WILL CONTINUE TO MONITOR.
--- NOTE | 2019-07-02 05:12 | NUR ---
PT IS SLEEPING, AWAKE BY TOUCH, DENY ANY RESPIRATORY DISTRESS, DENY ANY PAIN OR DISCOMFORT AT THIS MOMENT, IV AT LEFT AC, NO LEAKING, NO INFILTRATION. ALL ADLS ASSIST, ALL NEED MET, CALL LIGHT IN REACH, WILL CONTINUE TO MONITOR.
[2019-07-02 06:14] LABS: BASOPHIL % 1.1 % (0-2); PLATELET COUNT 357 x10^3mcL (130-400); RED CELL DISTRIBUTION WIDTH 13.3 % (11.5-14.5)
[2019-07-02 06:26] VITALS: BP 95/53
[2019-07-02 06:32] LABS: CALCIUM 8.3 mg/dL (8.5-10.1); CARBON DIOXIDE 26.3 mmol/L (21-32); CHLORIDE SERUM 107 mmol/L (98-107); CREATININE SERUM 0.8 mg/dL (0.6-1.0); GFR1 > 60 mL/min; GLUCOSE SERUM 83 mg/dL (74-106); MAGNESIUM 1.9 mg/dL (1.8-2.4); PHOSPHOROUS 3.7 mg/dL (2.5-4.9); SODIUM SERUM 141 mmol/L (136-145)
--- NOTE | 2019-07-02 07:30 | NUR ---
PT RECIEVED FROM NIGHT NURSE. PT RESTING IN BED AT THIS TIME. DENIES PAIN OR DISCOMFORT. PT A/O X4, CALM AND COOPERATIVE AT THIS TIME. PT MED SURG. DENIES CP, NV, DIZZINESS, AND PALPATATIONS. PALPABLE PULSES, NO EDEMA NOTED AT THSI TIME. BREATHIGN E/U ON RA. ABD SOFT AND ROUND, DENIES PAIN TO PALPATION. PT HAS REDNESS TO L BREAST. DENIES PAIN AT THIS TIME. IV TO LAC, INTACT AND INFUSING AT THIS TIME. BED AT LOWEST POSITION.CALL LIGHT WITHIN REACH. WILL CONTINUE TO MONITOR.
[2019-07-02 08:57] VITALS: BP 82/50
--- NOTE | 2019-07-02 10:01 | NUR ---
PT BP 82/50. MD CHAMBERS NOTIFIED.
--- NOTE | 2019-07-02 10:43 | NUR ---
REPORT GIVEN TO WEI SADLER. PT RESTING IN BED AT THIS TIME. DENIES PAIN OR DISCOMFORT. BREATHIGN E/U. NO SIGNS OF ACUTE DISTRESS AT THIS TIME.
--- NOTE | 2019-07-02 11:00 | NUR ---
RECEIVED PATIENT FROM DARCI SADLER, PATIENT LYING ON BED,AWAKE AND ALERT AND ORIENTED. IVF ON THE RT AC INTACT. AND MADE ROUNDS AND TOLD THE PLAN OF CARE. PATIENT SIGNED THE CONSENT FOR NEEDLE ASPIRATION LEFT POST MASTECTOMY FLUID COLLECTION,POSSIBLE INCISION AND DRAINAGE.
[2019-07-02 12:00] VITALS: BP 95/54
--- NOTE | 2019-07-02 12:45 | NUR ---
REPORT GIVEN TO TEJ SADLER FOR CONTINUE CARE AND PATIENT COMFORTABLY ON BED.
--- NOTE | 2019-07-02 13:00 | NUR ---
RECEIVED PATIENT SLEEPING AT THIS TIME, CONTINUE CARE.
--- NOTE | 2019-07-02 13:24 | NUR ---
PATIENT IS AROUSABLE, NO COMPLAIN. NEW ABX ZOSYN IVPB STARTED AT 100ML/HR, NEEDS MET. CALL LIGHT WITHIN REACH. NO REACTION NOTED.
--- NOTE | 2019-07-02 15:08 | NUR ---
Discount pharmacy card and list to low cost medical clinics given to patient by Darek Mcclellan,
[2019-07-02 15:55] VITALS: BP 92/57
[2019-07-02 15:56] LABS: microscopic required? NO
[2019-07-02 16:06] LABS: UA SPECIFIC GRAVITY <=1.005 (1.005-1.035); urine erythrocyte NEGATIVE (NEGATIVE)
--- NOTE | 2019-07-02 17:37 | NUR ---
PATIENT RESTING IN BED, MAIA WIPE PROVIDED. ZOSYN IVPB ADMINISTERED. PATIENT UP TO [facility]. TRANSPORT HERE FOR PATIENT. PATIENT OFF TO OR VIA BED. IV TO LAC INTACT AND PATENT.
--- NOTE | 2019-07-02 19:01 | NUR ---
PATIENT STILL IN OR AT THIS TIME.
[2019-07-02 20:30] VITALS: BP 104/59
--- NOTE | 2019-07-02 20:30 | NUR ---
REPORT RECEIVED FROM GELY HOG PUSHER. PATIENT IN STABLE CONDITION. NO SIGNS OF DISTRESS. PATIENT TRANSFERRED FROM [facility] TO BED. DAUGHTERS AT BEDSIDE. WILL CONTINUE TO MONITOR. CALL LIGHT WITHIN REACH.
--- NOTE | 2019-07-02 23:00 | NUR ---
REPORT RECIEVED FROM YAYO. PT AWAKE AND ALERT AT THIS TIME. SKIN WARM AND DRY. BREATH SOUNDS CLEAR NEREIDA, RESP EVEN AND UNLABORED. 02 SAT 95% ON RA. PT DENIES ANY PAIN. LT ANT CHEST WALL AREA WITH DRSG CLEAN AND DRY. ABD SOFT WITH AUDIBLE [id number]. PT VOIDING WITHOUT PROBLEM. IV SITE ON LT FA NEAR A/C INTACT, NO S/S INFILTRATION. IVF NS INFUSING WELL AT 100CCHR. PT IN LOW POSITION AND CALL LIGHT WITHIN REACHED. IVAB ZOSYN HANG ORDERED.
--- NOTE | 2019-07-02 23:25 | NUR ---
REPORT GIVEN TO DOROTEO GALVEZ. PATIENT IN STABLE CONDITION.
--- NOTE | 2019-07-03 03:07 | NUR ---
PT RESTING QUIETLY WITH EYES CLOSED. RESP EVEN AND UNLABORED. CALL LIGHT WTIHIN REACHED.
[2019-07-03 05:18] VITALS: BP 93/52
--- NOTE | 2019-07-03 05:31 | NUR ---
PT RESTED WELL. PT DENIES ANY PAIN AT THIS TIME. DRSG ON LT ANT CHEST AREA CLEAN, DRY, AND INTACT. IV SITE ON LT FA, NEAR A/C, NO S/S INFILTRATION. CALL LIGHT WITHIN REACHED.
[2019-07-03 06:54] LABS: BASOPHIL % 0.9 % (0-2); PLATELET COUNT 350 x10^3mcL (130-400); RED CELL DISTRIBUTION WIDTH 13.1 % (11.5-14.5)
[2019-07-03 06:58] LABS: MAGNESIUM 1.9 mg/dL (1.8-2.4); PHOSPHOROUS 3.5 mg/dL (2.5-4.9)
--- NOTE | 2019-07-03 07:20 | NUR ---
RECEIVED PT RESTING IN BED. AAOX4. RESP EVEN AND UNLABORED ON RA. REPORTS 02/23 L BREAST PAIN 02/23. REQUESTING IBUPROFEN. DRESSING TO L BREAST C/D/I. IVF INFUSING, NO REDNESS OR SWELLING NOTED. CONTACT ISOLATION. BED IN LOW POSITION, CALL LIGHT WITHIN REACH. WILL CONTINUE TO MONITOR.
[2019-07-03 09:00] VITALS: BP 94/45
--- NOTE | 2019-07-03 12:14 | NUR ---
PT RESTING IN BED. NO ACUTE DISTRESS. MEDICATED ORDERED FOR L BREAST PAIN. DRESSING C/D/I. IVF INFUSING, NO REDNESS OR SWELLING TO IV SITE. HOB ELEVATED. VISITOR AT BEDSIDE. CALL LIGHT WITHIN REACH. WILL CONTINUE TO MONITOR.
[2019-07-03 13:10] VITALS: BP 91/57
--- NOTE | 2019-07-03 14:27 | NUR ---
L BREAST WOUND CARE DONE ORDERED. WOUND SITE CLEANED WITH NS, KERLIX DAMPED WITH NS APPLIED PACKING AND COVERED WITH ABD PAD. PT TOLERATED WELL. REPORTS MILD L BREAST WOUND PAIN. CALL LIGHT WITHIN REACH. WILL CONTINUE TO MONITOR.
[2019-07-03 16:51] VITALS: BP 99/54
--- NOTE | 2019-07-03 18:54 | NUR ---
PT RESTING IN BED. NO ACUTE DISTRESS. AAOX4. RESP EVEN AND UNLABORED ON RA. REPORTS MINOR L BREAST PAIN, TOLERABLE. DRESSING TO L BREAST C/D/I. WOUND CARE INSTRUCTIONS PROVIDED, PT VERBALIZED UNDERSTANDING. PT GIVEN WOUND CARE SUPPLIES, LEFT AT BEDSIDE. IVF INFUSING, NO REDNESS OR SWELLING. BED IN LOW POSITION, CALL LIGHT WITHIN REACH. WILL ENDORSE TO ONCOMING SHIFT.
--- NOTE | 2019-07-03 19:34 | NUR ---
RECEIVED PT FROM PREVIOUS SHIFT. PT A/OX4. DENIES PAIN. DENIES SOB ON RA. DRESSING TO L CHEST, CDI. IV TO LAC PATENT AND INFUSING WELL WITH NO S/S OF INFILTRATION. CALL LIGHT WITHIN REACH, BED IN LOW POSITION. WILL CONTINUE TO MONITOR.
[2019-07-03 19:55] VITALS: BP 97/55
--- NOTE | 2019-07-04 00:01 | NUR ---
PT RESTING IN NO ACUTE DISTRESS. RR EVEN/UNLABORED. CALL LIGHT WITHIN REACH, BED IN LOW POSITION. WILL CONTINUE TO MONITOR.
[2019-07-04 04:51] VITALS: BP 99/59
[2019-07-04 06:42] LABS: BASOPHIL % 1.6 % (0-2); PLATELET COUNT 351 x10^3mcL (130-400); RED CELL DISTRIBUTION WIDTH 13.5 % (11.5-14.5)
[2019-07-04 06:50] LABS: CALCIUM 8.7 mg/dL (8.5-10.1); CARBON DIOXIDE 26.2 mmol/L (21-32); CHLORIDE SERUM 106 mmol/L (98-107); CREATININE SERUM 0.9 mg/dL (0.6-1.0); GFR1 > 60 mL/min; GLUCOSE SERUM 95 mg/dL (74-106); MAGNESIUM 1.8 mg/dL (1.8-2.4); PHOSPHOROUS 3.7 mg/dL (2.5-4.9); POTASSIUM SERUM 3.9 mmol/L (3.5-5.1); SODIUM SERUM 141 mmol/L (136-145)
--- NOTE | 2019-07-04 07:01 | NUR ---
RECEIVED PT FROM [employer] INTERN NURSE. PT IN BED SLEEPING, AROUSABLE, RESP E/U ON RA. NO SIGNS OF ACUTE DISTRESS NOTED. IV TO LAC W/ NO SIGNS OF INFILTRATION, IVF INFUSING WELL. DRESSING TO L BREAST CDI. ON CONTACT PRECAUTIONS FOR HX OF MRSA. BED IN LOWEST POSITION AND CALL LIGHT WITHIN REACH. WILL CONTINUE TO MONITOR.
[2019-07-04 08:41] VITALS: BP 92/51
[2019-07-04 12:24] VITALS: BP 95/54
--- NOTE | 2019-07-04 13:02 | NUR ---
WOUND CARE DONE. NO BLEEDING OR DRAINING NOTED TO L SURGICAL WOUND SITE. PACKED W/ NS SOAKED KERLIX, 4X4 GAUZE APPLIED AND SECURED W/ ABD PAD AND PAPER TAPE. PT AT BEDSIDE DURING CARE AND WAS PROVIDED INSTRUCTIONS ON WOUND CARE. PT DENIES PAIN AT THIS TIME. WILL CONTINUE TO MONITOR.
[2019-07-04 16:44] VITALS: BP 91/55
[2019-07-04] MEDS ORDERED: DOXYCYCLINE HY100 MG PO (17:07)
[2019-07-04 18:19] VITALS: BP 91/55
[2019-07-04] MEDS ORDERED: LINEZOLID600 MG PO (18:23)
--- NOTE | 2019-07-04 18:50 | NUR ---
PT DISCHARGED. REVIEWED DISCHARGE PACKET W/ PT, INCLUDING FOLLOW UP INSTRUCTIONS, NEW RX MEDS AND WOUND CARE. PT AOX4, RESP E/U ON RA, VS STABLE, DENIES PAIN AT THIS TIME. IV TO LFA REMOVED, CATH INTACT, GAUZE DRESSING APPLIED. PT AMBULATORY TO [facility], ESCORTED BY JP SCHWAB W/ NO ACUTE INCIDENCE.
== END 2019-07-04 19:05 | disposition home or self-care (01) | DRG 385 ==
LOC: ED 21:10 → MU 07-02 00:54
PROVIDERS: Emergency Medicine; Family Medicine; Surgery; ADMIT Internal Medicine
PROC: 0H9U0ZZ Drainage of Left Breast, Open Approach (ICD-10-PCS; principal; 2019-07-02 17:45)
DX: N61.1 Abscess of the breast and nipple (principal); E44.1 Mild protein-calorie malnutrition; D47.3 Essential (hemorrhagic) thrombocythemia; E87.6 Hypokalemia; Z68.25 Body mass index [BMI] 25.0-25.9, adult; Z85.3 Personal history of malignant neoplasm of breast
CPT/HCPCS: 76641; G0378; J2250; J2405; J2543; J2704; J2765; J3010; J3370; J3490; J7030; J7120; Q0092